=== PATIENT | female | born 1950 | race Caucasian/White ===

== ENCOUNTER 2016-10-05 12:33 | Day surgery (SDC) | payer BC ==
[~2016-10-05] VITALS: Ht 152.4 cm; Wt 89.9 kg
[2016-10-05 13:04] VITALS: BP 152/85; PULSE 90; TEMP 97.7
[2016-10-05] MEDS ORDERED: ZESTRIL 10MG10 MG PO (13:10)
[2016-10-05] MEDS ORDERED: LIPITOR 10MG10 MG PO (13:10)
[2016-10-05] MEDS ORDERED: MOTRIN 200200 MG/TAB PO (13:11)
[2016-10-05] MEDS ORDERED: TYLENOL 500MG500 MG PO (13:11)
[2016-10-05] MEDS ORDERED: CO Q-1010 M1 PO (13:12)
[2016-10-05 14:25] VITALS: BP 135/67; PULSE 77
[2016-10-05 14:40] VITALS: BP 137/77; PULSE 69
[2016-10-05 15:53] VITALS: BP 123/74; PULSE 67
== END 2016-10-05 14:50 | disposition home or self-care (01) ==
LOC: SDCO 12:33
DX: Z12.11 Encounter for screening for malignant neoplasm of colon (principal); I10 Essential (primary) hypertension; E78.5 Hyperlipidemia, unspecified; E88.81 Metabolic syndrome and other insulin resistance; E66.9 Obesity, unspecified
CPT/HCPCS: OP; J2250; J2405; J3010; J7030

== ENCOUNTER → 2017-09-22 | Outpatient (CLI) | payer BC ==
[~2017-09-22] MED LIST: CO Q-1010 M1 PO; LIPITOR 10MG10 MG PO; MOTRIN 200200 MG/TAB PO; TYLENOL 500MG500 MG PO; ZESTRIL 10MG10 MG PO
== END ==
LOC: MC.RAD 09-05 08:20
DX: Z12.31 Encounter for screening mammogram for malignant neoplasm of breast (principal)

== ENCOUNTER 2017-09-27 10:30 | Outpatient (RCR) | payer BC | END 2017-11-22 | LOC: WSPT | DX: M76.62 Achilles tendinitis, left leg (principal) | CPT/HCPCS: G8978-GP; G8979-GP ==

== ENCOUNTER → 2018-09-29 | Outpatient (CLI) | payer MEDICARE | LOC: MC.RAD 13:31 | DX: Z12.31 Encounter for screening mammogram for malignant neoplasm of breast (principal) ==

== ENCOUNTER → 2020-10-16 | Outpatient (CLI) | payer MEDICARE | LOC: MC.RAD 08:07 | DX: Z12.31 Encounter for screening mammogram for malignant neoplasm of breast (principal) ==

== ENCOUNTER → 2021-10-16 | Outpatient (CLI) | payer MEDICARE | LOC: MC.RAD 08:36 | DX: Z12.31 Encounter for screening mammogram for malignant neoplasm of breast (principal) ==